=== PATIENT | female | born 1940 | race Caucasian/White ===

== ENCOUNTER 2016-07-30 09:40 | Emergency (ER) | payer OTHER ==
[~2016-07-30] VITALS: Ht 165.1 cm; Wt 63.8 kg
[~2016-07-30 09:40] MED LIST: MOTRIN600 M1 PO; PERCOCET 5/31 TABLET PO
[2016-07-30] MEDS ORDERED: AZITHROMYCIN250 MG PO (10:15)
[2016-07-30] MEDS ORDERED: PROBIOTIC1 EAC1 PO (10:16)
[2016-07-30] MEDS ORDERED: DULCOLAX5 MG PO (10:16)
[2016-07-30] MEDS ORDERED: BENZONATATE100 MG PO (10:17)
[2016-07-30] MEDS ORDERED: BIOTIN1000 MICRO PO (10:18)
[2016-07-30] MEDS ORDERED: DAILY VALUE1 EACH PO (10:20)
[2016-07-30] MEDS ORDERED: CALCIUM +D & M1 EACH PO (10:20)
[2016-07-30] MEDS ORDERED: FOLIC ACID1 MG PO (10:20)
[2016-07-30] MEDS ORDERED: VITAMIN B122500 MCG PO (10:21)
[2016-07-30] MEDS ORDERED: VITAMIN C1000 MG PO (10:22)
[2016-07-30] MEDS ORDERED: B COMPLETE1 EACH PO (10:22)
[2016-07-30] MEDS ORDERED: TRAMADOL HCL50 MG PO (10:23)
[2016-07-30] MEDS ORDERED: ATENOLOL25 MG PO (10:23)
[2016-07-30] MEDS ORDERED: MYRBETRIQ50 MG PO (10:24)
[2016-07-30] MEDS ORDERED: GABAPENTIN300 MG PO (10:26)
[2016-07-30] MEDS ORDERED: PROAIR HFA8.5 GM IH (10:27)
[2016-07-30] MEDS ORDERED: PHENERGAN-CODE120 ML PO (10:27)
[2016-07-30 10:41] LABS: HEMATOCRIT 36.5 % (36.0-46.0); MCH 30.3 PG (29.0-34.0); MCHC 33.2 G/DL (30.0-36.0); MCV 91.3 FL (83-99); MEAN PLAT.VOLUME 9.3 uM^3 (9.5-12.4); PLATELET COUNT 207 K/uL (156-360); RBC DIS.WIDTH-CV 12.7 % (11.8-14.6); RBC DIS.WIDTH-SD 41.5 % (39-53)
[2016-07-30 10:58] LABS: CHLORIDE 102 mEq/L (99-109); POTASSIUM 3.6 mEq/L (3.7-5.4); SODIUM 137 mEq/L (136-147)
[2016-07-30 10:59] LABS: GLUCOSE 138 mg/dL (70-99)
[2016-07-30 11:01] LABS: ANION GAP 9 MEQ/L (2-14)
[2016-07-30 11:03] LABS: GFR ESTIMATE (CALCULATED) > 59 mL/min/
[2016-07-30 11:04] LABS: UREA NITROGEN (BUN) 12 mg/dL (9-23)
[2016-07-30 11:06] LABS: TROP-I INTERPRETATION NEGATIVE; TROPONIN-I < 0.01 ng/mL (0.0-0.30)
[2016-07-30] MEDS ORDERED: PREDNISONE20 MG PO (12:49)
[2016-07-30] MEDS ORDERED: VENTOLIN HFA18 GM IH (12:49)
[2016-07-30] MEDS ORDERED: DOXYCYCLINE HY100 M3 PO (12:49)
[2016-07-30 13:28] VITALS: BP 140/52
== END 2016-07-30 13:30 | disposition home or self-care (01) ==
LOC: EME 09:40
PROVIDERS: Emergency Medicine
DX: J44.0 Chronic obstructive pulmonary disease with (acute) lower respiratory infection (principal); J44.1 Chronic obstructive pulmonary disease with (acute) exacerbation; J20.9 Acute bronchitis, unspecified; I10 Essential (primary) hypertension
CPT/HCPCS: 71020; 80048; 84484; 85027; 93005; 94640; 99281; 99284; J7512